=== PATIENT | female | born 1945 | race Caucasian/White ===

== ENCOUNTER 2019-05-14 01:38 | Observation (INO) ==
[2019-05-14] MEDS ORDERED: Ondansetron 4 MG/2 ML VIAL IVP PRN (07:12)
[2019-05-14 08:39] LABS: Basophils % 0.4 %; Eosinophils # 0.2 K/mcL (0.0-0.6); Eosinophils % 2.8 %; Immature Granulocytes % 0.3 % (0-4); Mean Corpuscular HGB Conc 32.5 g/dL (31.6-35.5); Mean Corpuscular Hemoglobin 31.8 pg (28.0-33.3); Mean Corpuscular Volume 97.8 fL (83.0-100.0); Mean Platelet Volume 10.2 fL (9.4-12.4); Monocytes # 0.6 K/mcL (0.0-1.3); Monocytes % 8.8 %; Neutrophils # 4.3 K/mcL (1.6-8.9); Platelet Count 246 K/mcL (140-400); Red Blood Count 4.09 M/mcL (3.82-4.97); Red Cell Distribution Width 13.2 % (11.5-14.5); Segmented Neutrophils % 59.7 %; White Blood Count 7.1 K/mcL (4.3-11.1)
[2019-05-14 08:47] LABS: BUN/Creatinine Ratio 22 (6-26); Blood Urea Nitrogen 14 mg/dL (8-23); Calcium 9.5 mg/dL (8.6-10.3); Carbon Dioxide 24 mEq/L (23-29); Chloride 105 mEq/L (98-107); Glucose 134 mg/dL (70-105); Osmolality,Calculated 290 (280-300); Potassium 4.2 mEq/L (3.5-5.1); Sodium 139 mEq/L (136-145); eGFR For African Americans > 60 (> 60); eGFR For Non-African Americans > 60 (> 60)
[2019-05-14] MEDS ORDERED: NON-FORMULARY MEDICATION 1 EACH EACH (Omega-3/Dha/Epa/Fish Oil [Fish Oil 1,000 Mg Softgel] PO SCH (09:00)
[2019-05-14] MEDS: Multivit/Ca/Min/Fe/FA 1 TAB TABLET PO SCH (10:22)
[2019-05-14] MEDS: Lisinopril 20 MG TABLET PO SCH (10:22)
[2019-05-14] MEDS: Aspirin Enteric Coated 81 MG Tablet PO SCH (10:22)
[2019-05-14 11:06] LABS: Thyroid Stimulating Hormone 1.746 mcIU/mL (0.340-5.600)
[2019-05-14] MEDS ORDERED: Isovue-370 500 ML BOTTLE IVP ONE (16:48)
[2019-05-15 06:42] LABS: Chol/HDL Ratio 6.9 (0-4.9)
[2019-05-15 08:50] LABS: Estimated Average Glucose 171 mg/dl
[2019-05-15] MEDS: Lisinopril 20 MG TABLET PO SCH (10:00)
[2019-05-15] MEDS: Multivit/Ca/Min/Fe/FA 1 TAB TABLET PO SCH (10:12)
[2019-05-15] MEDS: Aspirin Enteric Coated 81 MG Tablet PO SCH (10:12)
[2019-05-15 16:16] VITALS: BP 109/72
== END 2019-05-15 17:38 | disposition home or self-care (01) ==
LOC: 2NENU → SUATTDRO 02:41
PROVIDERS: ADMIT Internal Medicine; ATTEND Internal Medicine